=== PATIENT | female | born 2000 | race Caucasian/White ===

== ENCOUNTER → 2021-02-17 14:50 | Outpatient (CLI) | payer BC, SELFPAY ==
--- NOTE | 2021-02-17 14:56 | DI.US.S_ITS ---
PROCEDURE: US PELVIC COMPLETE INDICATIONS: Pelvic and perineal pain TECHNIQUE: Real-time scanning was performed of the pelvic organs, with image documentation. Additional endovaginal scanning was necessary due to incomplete visualization of the adnexal and endometrial structures by transabdominal scanning. COMPARISON: None. FINDINGS: Uterus: Uterus is normal in size at 5.5 x 4 x 5.1 cm. The endometrium measures 4 mm in combined thickness. An IUD is seen at its expected location. Ovaries: The right ovary measures 1.5 x 2.6 x 1.5 cm. The left ovary measures 3.4 x 2 x 2.7 cm and demonstrates a likely resolving hemorrhagic follicle that measures up to 1.6 cm. The ovaries have a normal sonographic appearance. No adnexal masses are seen. Other: No pathologic free abdominal or pelvic fluid. IMPRESSION: No significant abnormality is seen. Likely resolving left ovarian hemorrhagic follicle. The IUD is seen at its expected location. Dictated by: Brandan Portillo M.D. on 02/17/2021 at 14:59 Approved by: Brandan Portillo M.D. on 02/17/2021 at 15:00
== END ==
PROVIDERS: PCP Internal Medicine; Referring Provider Internal Medicine; Visit Provider Internal Medicine
DX: R10.2 Pelvic and perineal pain (principal)
CPT/HCPCS: 76830; 76856